=== PATIENT | male | born 1975 | race African-American/Black ===

== ENCOUNTER 2021-12-07 04:53 | Emergency (ER) | payer OTHER ==
[~2021-12-07] VITALS: Ht 170.2 cm; Wt 88.6 kg
[2021-12-07] MEDS ORDERED: LIDO:MAALOX 1:1 20 ML SINGLE DOSE. PO ONE (05:30)
[2021-12-07] MEDS ORDERED: FAMO-63 PO (05:34)
--- NOTE | 2021-12-07 05:36 | PHYS DOC ---
Past History Past Medical History: Hypertension Additional Past Medical Histor: sleep apnea, PTSD (MAGGIE MCLEAN DO) Past Surgical History: No Surgical History (MAGGIE MCELAN DO) Smoking: Non-smoker Alcohol Use: Occasionally Drug Use: Marijuana (Edibles, last use 4 days ago) (MAGGIE MCLEAN DO) General Adult EDM: Chief Complaint: CHEST PAIN HPI: HPI: Patient is a 46 year old male who presents with chief complaint of chest pain. Pain began at 2300 this been constant and fluctuating in intensity between 5-8 out of 10. Patient reports pain worsens when supine and improves when he is seated. Patient took Tums and Pepto-Bismol without relief. Patient states chest pain is worse with inspiration, denies cough. Patient reports alcohol use of 3 drinks every other day. Patient also reports use of marijuana edibles 4 days ago. Denies sick contacts or Covid exposure. (MAGGIE MCLEAN DO) Review of Systems: Review of Systems: Constitutional: Denies fever or chills Eyes: Denies redness or eye pain HENT: Denies nasal congestion or sore throat Respiratory: Reports cough oand shortness of breath Cardiovascular: Reports chest pain; denies palpitations GI: Denies abdominal pain, nausea, or vomiting : Denies dysuria or hematuria Musculoskeletal: Reports chronic back pain; denies joint pain Integument: Denies rash or skin lesions Neurologic: Denies headache, focal weakness or sensory changes Complete systems were reviewed and found to be within normal limits, except as documented in this note. (MAGGIE MCLEAN DO) Current Medications: Current Meds: Current Medications Medications (Trade) Dose Ordered Sig/Noah Start Time Stop Time Status Last Admin Dose Admin Multi-Ingredient Mouthwash/Gargle (Gi Cocktail) 20 ml 1X ONCE 12/07/21 05:30 12/07/21 05:31 DC 12/07/21 05:17 20 ML (MAGGIE MCLEAN DO) Allergies: Allergies: Allergies Coded Allergies Type Severity Reaction Last Updated Verified lisinopril Allergy Severe 12/07/21 Yes (MAGGIE MCLEAN DO) Physical Exam: PE: Constitutional: Well developed, well nourished, no acute distress, non-toxic appearance HENT: Normocephalic, atraumatic Eyes: Conjunctiva normal, no discharge Neck: Normal range of motion, no tenderness, supple Lungs & Thorax: CTAB, no respiratory distress, equal chest rise and fall Cardiovascular: Regular rate and rhythm, no murmurs rubs or gallops Abdomen: Soft, no tenderness, no guarding/rebound tenderness/distention Skin: Warm, dry, no erythema, no rash Extremities: No tenderness, ROM intact, no edema Neurologic: Alert and oriented X 3, no focal deficits noted Psychologic: Affect normal, judgment normal (MAGGIE MCLEAN DO) Current Patient Data: Vital Signs: Vital Signs Date Time Temp Pulse Resp B/P (MAP) Pulse Ox O2 Delivery O2 Flow Rate FiO2 12/07/21 04:59 98.3 92 16 145/92 (109) 98 Room Air (MAGGIE MCLEAN DO) EKG: EKG: @0502 NSR at 84bpm, NO ST elevation, J point noted to V2, NO ST depression, QRS 92ms, QT/QTc 364/433ms, t wave inversion III (MAGGIE MCLEAN DO) Radiology/Procedures: Radiology/Procedures: [] (MAGGIE MCLEAN DO) Heart Score: C/O Chest Pain: Yes HEART Score for Chest Pain: HEART Score for Chest Pain Response (Comments) Value History Slighlty/Non-Suspicious 0 ECG Normal 0 Age >45 - < 65 1 Risk Factors No Risk Factors 0 Total 1 Risk Factors: Risk Factors: DM, Current or recent (<one month) smoker, HTN, HLP, family history of CAD, obesity. Risk Scores: Score 0 - 3: 2.5% MACE over next 6 weeks - Discharge Home Score 4 - 6: 20.3% MACE over next 6 weeks - Admit for Clinical Observation Score 7 - 10: 72.7% MACE over next 6 weeks - Early Invasive Strategies (MAGGIE MCLEAN DO) Course & Med Decision Making: Course & Med Decision Making Pertinent Labs and Imaging studies reviewed. (See chart for details) Patient presents with atypical chest discomfort which appears more likely secondary to gastritis/GERD. Patient does report chronic alcohol use. Cannot fully exclude an ulcer. GI cocktail provided with limited relief. EKG stable. Cardiac risk factor is low. Labs obtained and pending. Pepcid prescribed. Chest x-ray ordered and pending. 0600-signout given to Dr. Burrell for further evaluation and final disposition. Discussed current findings and plan with patient, who acknowledges understanding and agreement. (MAGGIE MCLEAN DO) Course & Med Decision Making The patient's labs are unremarkable. His troponin is negative. The medications the patient was given for GI symptoms have helped. I advised the patient try for 10 days of Nexium and consider consult with gastroenterology. He is stable for discharge at this time. (TEETEE BURRELL DO) Dragon Disclaimer: Dragon Disclaimer: This electronic medical record was generated, in whole or in part, using a voice recognition dictation system. (MAGGIE MCLEAN DO) Departure Departure: Impression: Primary Impression: Atypical chest pain Disposition: HOME / SELF CARE / HOMELESS Condition: STABLE Referrals: PCP,UNKNOWN (PCP) LISA ENGEL MD Patient Instructions: Alcoholic Gastritis-Brief, Chest Pain (Nonspecific), [id number], Gastritis, Adult, [id number] Scripts Famotidine (PEPCID) 20 Mg Tablet 1 TAB PO BID for Gastritis, #30 TAB Prov: MAGGIE MCLEAN DO 12/07/21 MAGGIE MCLEAN DO Dec 07, 2021 05:36 TEETEE BURRELL DO Dec 07, 2021 06:49
[2021-12-07] MEDS ORDERED: IV NORMAL SALINE 1,000ML 1,000 ML IV ONE (06:00)
[2021-12-07] MEDS ORDERED: FAMOTIDINE 20 MG/2 ML VIAL IVP ONE (06:00)
[2021-12-07 06:11] LABS: BASO % 1 % (0-3); EOS # 0.1 x10^3/uL (0.0-0.7); EOS % 1 % (0-3); HEMATOCRIT 45.3 % (39.0-53.0); HEMOGLOBIN 15.1 g/dL (13.0-17.5); LYMPH % 44 % (24-48); MEAN CORPUSCULAR HEMOGLOBIN 31 pg (25-35); MEAN CORPUSCULAR HGB CONC 33 g/dL (31-37); MEAN CORPUSCULAR VOLUME 92 fL (79-100); MONO # 0.5 x10^3/uL (0.0-1.1); MONO % 12 % (0-9); NEUT # 1.9 x10^3uL (1.8-7.7); NEUT % 43 % (31-73); PLATELET COUNT 286 x10^3/uL (140-400); RED BLOOD COUNT 4.93 x10^6/uL (4.30-5.70); WHITE BLOOD COUNT 4.5 x10^3/uL (4.0-11.0)
--- NOTE | 2021-12-07 06:13 | RAD ---
XR CHEST 1V Clinical History: Reason: chest pain / Spl. Instructions: / History: Technique: AP view of the chest was obtained at 12/07/2021 5:44 AM. Comparison: None. Findings: The cardiomediastinal silhouette is normal. The pulmonary vasculature is normal. The lungs and pleura l margins are clear. Impression: No evidence of an acute cardiopulmonary process. Electronically signed by: Peyman Dukes III, MD (12/07/2021 6:10 AM) [facility]
[2021-12-07 06:16] LABS: BACTERIA,URINE 0 /HPF (0-FEW); BILIRUBIN,URINE NEG (NEG); CLARITY,URINE CLEAR; COLOR,URINE YELLOW; GLUCOSE,URINE NEG (NEG); NITRITE,URINE NEG (NEG); RBC,URINE 0 /HPF (0-2); SQUAMOUS EPITHELIAL CELL,UR OCC /LPF; UROBILINOGEN,URINE 0.2 mg/dL (0.2 mg/dL); WBC,URINE 0 /HPF (0-4)
[2021-12-07 06:19] LABS: CALCIUM 9.3 mg/dL (8.5-10.1); GFR 97.8
[2021-12-07 06:35] LABS: ALBUMIN/GLOBULIN RATIO 1.3 (1.0-1.7); MAGNESIUM 2.1 mg/dL (1.8-2.4); TOTAL BILIRUBIN 1.3 mg/dL (0.2-1.0); TOTAL PROTEIN 7.2 g/dL (6.4-8.2)
--- NOTE | 2021-12-07 06:45 | EKG ---
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
[2021-12-07 06:53] VITALS: BP 142/96
[2021-12-07] MEDS ORDERED: PANTOPRAZOLE IV 40 MG VIAL. IVP ONE (07:00)
== END 2021-12-07 07:04 | disposition home or self-care (01) ==
LOC: ER 04:53
DX: R07.89 Other chest pain (principal); I10 Essential (primary) hypertension; Z88.8 Allergy status to other drugs, medicaments and biological substances
CPT/HCPCS: 36415; 71045; 80053; 81001; 82553; 83690; 83735; 83880; 84484; 85025; 93005; 96361; 96374; 96375; 99285; C9113; G0480; J3490; J7030